=== PATIENT | male | born 1960 | race Caucasian/White ===

== ENCOUNTER 2020-07-22 12:18 | Emergency (ER) | payer OTHER ==
[2020-07-22 12:24] VITALS: BP 151/90; PULSE 89; TEMP 98.5; BMI 25.0
[2020-07-22] MEDS ORDERED: DIPHTH,PERTUSS(ACELL),TET 0.5 ML DISP.SYRIN IM ONE ×2 (12:56→13:00)
[2020-07-22] MEDS ORDERED: KETOROLAC TROMETHAMINE 30 MG/1 ML VIAL ONE (14:01)
== END 2020-07-22 14:43 | disposition home or self-care (01) ==
LOC: JERFT 12:18
PROC: 2W3QX1Z Immobilization of Right Lower Leg using Splint (ICD-10-PCS; principal; 2020-07-22)
PROC: 3E0234Z Introduction of Serum, Toxoid and Vaccine into Muscle, Percutaneous Approach (ICD-10-PCS; 2020-07-22)
DX: S92.001A Unspecified fracture of right calcaneus, initial encounter for closed fracture (principal)
CPT/HCPCS: 70450-TC; 73610-TC-RT-FY; 90715; 99284-25